=== PATIENT | female | born 1970 | race Caucasian/White ===

== ENCOUNTER 2019-12-22 11:51 | Emergency (ER) | payer SELFPAY ==
[2019-12-22 11:56] VITALS: BP 129/82; PULSE 80; RESP 18; TEMP 36.1; O2SAT 100
--- NOTE | 2019-12-22 12:01 | DI.RAD.S_ITS ---
PROCEDURE: XR CHEST 2V INDICATIONS: unproductive cough TECHNIQUE: 2 views of the chest were acquired. COMPARISON: None. FINDINGS: Surgical changes and devices: None. Lungs and pleura: Lungs are clear. No pleural effusions or pneumothorax. Mediastinum: Mediastinal contours are normal. Heart size is normal. Bones and chest wall: No suspicious bony abnormalities. Degenerative changes of the spine are not well characterized. Soft tissues appear unremarkable. IMPRESSION: No acute cardiopulmonary process is suspected. Dictated by: Trung Skinner M.D. on 12/22/2019 at 11:15 Approved by: Trung Skinner M.D. on 12/22/2019 at 11:16
--- NOTE | 2019-12-22 12:15 | ED.URI ---
HPI - URI/Sore Throat General Chief Complaint: Upper Respiratory Symptoms Stated Complaint: Nasty Cold and Cough Time Seen by Provider: 12/22/19 12:11 Source: patient Mode of arrival: Ambulatory Limitations: no limitations History of Present Illness HPI Narrative: 49-year-old female with a history of chronic bronchitis and asthma uses an albuterol inhaler at home. Has been using it without any improvement here for evaluation of 1.5-2 months of a cough and congestion. Has used [id number] cough and cold preparations without any improvements. Subjective fevers. Has had some nausea and vomiting associated with the coughing. Does not have a primary provider. Related Data Previous Rx's Medication Instructions Recorded azithromycin See Rx Instructions .ROUTE 12/22/19 .COMPLEX #6 tab benzonatate [Tessalon Perles] 100 mg PO TID PRN #12 cap 12/22/19 prednisone 40 mg PO DAILY 5 Days #10 tab 12/22/19 Allergies Allergy/AdvReac Type Severity Reaction Status Date / Time acetaminophen [From [place]] Allergy Verified 12/22/19 12:00 hydrocodone [From [place]] Allergy Verified 12/22/19 12:00 Penicillins Allergy Verified 12/22/19 12:00 sucralfate [From [place]] Allergy Verified 12/22/19 12:00 Sulfa (Sulfonamide Allergy Verified 12/22/19 12:00 Antibiotics) Review of Systems Constitutional Constitutional: Reports fever(s) Cardiovascular Cardiovascular: Denies chest pain, Denies rapid heart rate, Denies edema, Reports dyspnea and Reports dyspnea on exertion Respiratory Respiratory: Reports cough, Reports dyspnea, Reports dyspnea on exertion and Reports wheezing Gastrointestinal Gastrointestinal: Denies abdominal pain, Denies change in stool character and Reports nausea Musculoskeletal Musculoskeletal: Denies myalgias and Denies arthralgias Integumentary/Breasts Skin/Breast: Denies lesions and Denies rash Neurologic Neurologic: Denies behavioral changes Psychiatric Psychiatric: Denies behavioral changes Allergic/Immunologic Allergic/Immunologic: Reports wheezing Patient History Medical History Asthma (Acute) Chronic bronchitis (Acute) Social History Smoking Status: Current every day smoker Smoking Status: Current every day smoker alcohol intake frequency: 0-2 drinks per day Substance Use Type: does not use Exam Initial Vital Signs Initial Vital Signs: Vital Signs Temperature 97.0 F L 12/22/19 11:56 Pulse Rate 80 12/22/19 11:56 Respiratory Rate 18 12/22/19 11:56 Blood Pressure 129/82 12/22/19 11:56 Pulse Oximetry 100 12/22/19 11:56 Const General: cooperative and comfortable Limitations: mental status not altered Resp Effort & Inspection: not labored and tachypneic Auscultation: crackles and rhonchi Cardio Rate: regular rate Rhythm: regular rhythm Skin Lesions: no lesions Rashes: no rashes Neuro General: alert and awake Cognition: normal cognition Speech: speech normal Extrem General: normal to inspection and capillary refill normal Psych Appearance: grossly normal and well kempt Scores [facility] [place] coma scale eye opening: Spontaneous [place] coma scale verbal response: Orientated [place] coma scale motor response: [place]bey commands [place] coma scale total score: 15 Course Orders Ordered: ED Orders 12/22/19 12:01 XR chest 2V Stat Discontinued Medications Albuterol/Ipratropium (Duoneb) 3 ml INH NOW ONE Stop: 12/22/19 12:16 Last Admin: 12/22/19 12:19 Dose: 3 ml Documented by: TINANA Vital Signs Vital signs: Vital Signs - 8 hr 12/22/19 11:56 Temperature 97.0 F L Pulse Rate 80 Respiratory Rate 18 Blood Pressure 129/82 Pulse Oximetry 100 MDM - URI/Sore Throat Imaging Data Chest x-ray: Radiologist's Impression: [address] [address] XRay Report Signed Patient: Tosha Ruby RMR#: [id number] : 1970Acct:[id number] Age/Sex: 49 / FDate of Service: 12/22/19 Loc: ED Accession Number: [id number] Procedure: XR chest 2V Ordering Provider: Kyle Garibay D.O. PROCEDURE: XR CHEST 2V INDICATIONS: unproductive cough TECHNIQUE: 2 views of the chest were acquired. COMPARISON: None. FINDINGS: Surgical changes and devices: None. Lungs and pleura: Lungs are clear. No pleural effusions or pneumothorax. Mediastinum: Mediastinal contours are normal. Heart size is normal. Bones and chest wall: No suspicious bony abnormalities. Degenerative changes of the spine are not well characterized. Soft tissues appear unremarkable. IMPRESSION: No acute cardiopulmonary process is suspected. Dictated by: Trung Skinner M.D. on 12/22/2019 at 11:15 Approved by: Trung Skinner M.D. on 12/22/2019 at 11:16 MDM Narrative Medical decision making narrative: Patient states that the albuterol nebulizer here did not improve her symptoms. She has had symptoms for the past month. She does have coarse breath sounds bilateral. Does have a history of chronic bronchitis. Her chest x-ray shows no signs of acute pneumonia however atypical pneumonia in this situation is not unreasonable. I did discuss this with the patient. I feel that starting her on antibiotics is not unreasonable. I did tell her that this was based off of clinical scenario in she potentially is receiving antibiotics as she does not need. We also will send her home with a short course of steroids. Also discussed other treatments that she could try. She was given return precautions and follow-up instructions. She expressed understanding and agreement plan. Discharge Plan Departure Patient Disposition: Home Clinical Impression: Atypical pneumonia Chronic bronchitis Qualifiers: Chronic bronchitis type: unspecified Qualified Code(s): J42 - Unspecified chronic bronchitis Instructions: Cough Activity Restrictions/Additional Instructions: Take all the medications as directed. I do recommend you contact the health resource is coordinator here at the hospital with [phone]. Return to the emergency department for any new or worsening symptoms Prescriptions: New azithromycin 250 mg tablet See Rx Instructions .ROUTE .COMPLEX Qty: 6 RF: 0 prednisone 20 mg tablet 40 mg PO DAILY 5 Days Qty: 10 RF: 0 benzonatate [Tessalon Perles] 100 mg capsule 100 mg PO TID PRN (Reason: cough) Qty: 12 RF: 0
[2019-12-22] MEDS: ALBUTEROL/IPRATROPIUM 3 ML AMPUL INH (12:19)
== END 2019-12-22 13:02 | disposition home or self-care (01) ==
PROVIDERS: Emergency Provider Emergency Medicine
DX: J18.9 Pneumonia, unspecified organism (principal); J42 Unspecified chronic bronchitis
CPT/HCPCS: 71046; 94640; 99283